=== PATIENT | female | born 1975 ===

== ENCOUNTER 2017-05-24 15:13 | Inpatient (IN) | payer OTHER ==
[2017-05-24 15:23] VITALS: BMI 29.9
[2017-05-24] MEDS ORDERED: Morphine 2 mg/ml ISec IM STA (15:27)
--- NOTE | 2017-05-24 15:31 | ED PDOC ---
Arrival/HPI - General Time Seen by Provider: 05/24/17 15:19 Historian: Patient - History of Present Illness Narrative History of Present Illness (Text): 05/24/17 15:28 41yo female with no PMHx who present with complaint of b/l ankle pain s/p trauma minutes [employer]. Patient states she slipped and fell down 3stairs, injuring her ankles. Notes that pain is worse on her left ankle. She did not take any medication for the pain. Denies hitting her head. Denies LOC, any other complaint. Past Medical History - Provider Review Nursing Documentation Reviewed: Yes Family/Social History - Physician Review Nursing Documentation Reviewed: Yes Family/Social History: Unknown Family HX Allergies/Home Meds Allergies/Adverse Reactions: Allergies No Known Allergies Allergy (Verified 05/24/17 15:23) Home Medications: Home Meds Medication Instructions Recorded Confirmed Norethindrone [Mabel] 0.35 mg PO DAILY 05/24/17 05/24/17 Review of Systems - Physician Review All systems were reviewed & negative as marked: Yes - Review of Systems Constitutional: Normal Eyes: Normal ENT: Normal Respiratory: Normal Cardiovascular: Normal Gastrointestinal: Normal Genitourinary Female: Normal Musculoskeletal: Arthralgias (B/L ankle) Skin: Normal Neurological: Normal Endocrine: Normal Hemo/Lymphatic: Normal Psychiatric: Normal Physical Exam Vital Signs Reviewed: Yes Vital Signs Temp Pulse Resp BP Pulse Ox 05/24/17 19:42 52 L 18 134/68 98 05/24/17 17:32 59 L 18 110/67 99 05/24/17 15:22 97.4 F L 56 L 18 108/62 99 Temperature: Afebrile Blood Pressure: Normal Pulse: Regular Respiratory Rate: Normal Appearance: Positive for: Well-Appearing, Non-Toxic, Comfortable Pain Distress: None Mental Status: Positive for: Alert and Oriented X 3 - Systems Exam Head: Present: Atraumatic, Normocephalic Pupils: Present: PERRL Extroacular Muscles: Present: EOMI Conjunctiva: Present: Normal Mouth: Present: Moist Mucous Membranes Neck: Present: Normal Range of Motion Respiratory/Chest: Present: Clear to Auscultation, Good Air Exchange. No: Respiratory Distress, Accessory Muscle Use Cardiovascular: Present: Regular Rate and Rhythm, Normal S1, S2. No: Murmurs Abdomen: Present: Normal Bowel Sounds. No: Tenderness, Distention, Peritoneal Signs Back: Present: Normal Inspection Upper Extremity: Present: Normal Inspection. No: Cyanosis, Edema Lower Extremity: Present: NORMAL PULSES, Tenderness (B/L ankle worse on the left ), Swelling (Left ankle diffusely), Neurovascularly Intact. No: Edema, Normal ROM (Limited on ROM of left ankle) Neurological: Present: GCS=15, CN II-XII Intact, Speech Normal Skin: Present: Warm, Dry, Normal Color. No: Rashes Psychiatric: Present: Alert, Oriented x 3, Normal Insight, Normal Concentration Medical Decision Making ED Course and Treatment: 05/25/17 00:46 PT in ED for stated history. she was seen as soon as she came to ED and her pain was controlled in ED with analgesic. B/L Ankle xray IMPRESSION: Acute oblique displaced fracture in the distal diaphysis of the left fibula with 5 mm lateral displacement. Acute transverse nondisplaced fracture in the mid left medial malleolus. Result was JW Reaves. He notes that he saw the images himself and recommends admission of pt for surgical fixation of fracture. Result and plan was DW the pt and she agreed Pre op lab was ordered and was WNL. EKG Sinus johan @49bpm 05/25/17 00:50 Case was JW Nayak and she accepted pt to her service - RAD Interpretation Radiology Orders: 05/24/17 15:27 ANKLE COMPLETE 3 VIEWS BI [RAD] Stat 05/24/17 18:06 CHEST PORTABLE [RAD] Stat - Medication Orders Current Medication Orders: Famotidine (Pepcid) 40 mg PO HS CARLOS Last Admin: 05/24/17 22:11 Dose: 40 mg Hydromorphone HCl (Dilaudid) 0.5 mg IVP Q4H PRN PRN Reason: Pain, Mild (1-3) Last Admin: 05/24/17 23:04 Dose: 0.5 mg JEFFERY Pain Assessment Document 05/24/17 23:04 BN (Rec: 05/24/17 23:04 [id number]) Pain Reassessment Is this a pain reassessment? No Presence of Pain Presence of Pain Yes Pain Scale Used Pain Scale Used Numeric Location Left, Right or Bilateral Left Pain Location Body Site Ankle Description Description Constant Intensity of Pain at present 8 Pain Behavior Restlessness Alleviating Factors/Management Medication Techniques Alleviating Factors Medication IVP Administration Document 05/24/17 23:04 BN (Rec: 05/24/17 23:04 BN [id number]) Charges for Administration # of IVP Administrations 1 Ondansetron HCl (Zofran Inj) 4 mg IVP Q6 PRN PRN Reason: Nausea/Vomiting Discontinued Medications Morphine Sulfate (Morphine) 2 mg IM STAT STA Stop: 05/24/17 15:28 Last Admin: 05/24/17 15:27 Dose: 2 mg MAR Pain Assessment Document 05/24/17 15:27 HI (Rec: 05/24/17 15:48 HI [id number]) Pain Reassessment Is this a pain reassessment? No Sleep Is patient sleeping during reassessment? No Presence of Pain Presence of Pain Yes Pain Scale Used Pain Scale Used Numeric Location Left, Right or Bilateral Left Pain Location Body Site Ankle Description Description Throbbing Intensity of Pain at present 10 Acceptable Level of Pain 2 Pain Behavior Moaning Facial Grimacing IM Administration Charges Document 05/24/17 15:27 HI (Rec: 05/24/17 15:48 HI [id number]) Injection Site MAR Injection Site Right Arm Charges for Administration # of IM Administrations 1 Re-Assess: MAR Pain Assessment Document 05/24/17 16:27 HI (Rec: 05/24/17 18:33 HI [id number]) Pain Reassessment Is this a pain reassessment? Yes Sleep Is patient sleeping during reassessment? No Presence of Pain Presence of Pain Yes Pain Scale Used Pain Scale Used Numeric Location Left, Right or Bilateral Left Pain Location Body Site Ankle Description Description Constant Intensity of Pain at present 6 Morphine Sulfate (Morphine) 2 mg IVP STAT STA Stop: 05/24/17 18:22 Last Admin: 05/24/17 18:33 Dose: 2 mg MAR Pain Assessment Document 05/24/17 18:33 HI (Rec: 05/24/17 18:34 HI [id number]) Pain Reassessment Is this a pain reassessment? Yes Sleep Is patient sleeping during reassessment? No Presence of Pain Presence of Pain Yes Pain Scale Used Pain Scale Used Numeric Location Left, Right or Bilateral Left Pain Location Body Site Ankle Description Description Constant Intensity of Pain at present 9 Pain Behavior Facial Grimacing IVP Administration Document 05/24/17 18:33 HI (Rec: 05/24/17 18:34 HI [id number]) Charges for Administration # of IVP Administrations 1 Oxycodone/Acetaminophen (Percocet 5/325 Mg Tab) 1 tab PO STAT STA Stop: 05/24/17 16:19 Last Admin: 05/24/17 16:29 Dose: 1 tab MAR Pain Assessment Document 05/24/17 16:29 HI (Rec: 05/24/17 16:29 HI [id number]) Pain Reassessment Is this a pain reassessment? Yes Sleep Is patient sleeping during reassessment? No Presence of Pain Presence of Pain Yes Location Left, Right or Bilateral Left Pain Location Body Site Ankle Re-Assess: [facility] Pain Assessment Document 05/24/17 17:29 HI (Rec: 05/24/17 18:32 HI [id number]) Pain Reassessment Is this a pain reassessment? Yes Sleep Is patient sleeping during reassessment? No Presence of Pain Presence of Pain Yes Pain Scale Used Pain Scale Used Numeric Location Left, Right or Bilateral Left Pain Location Body Site Ankle Description Description Constant Intensity of Pain at present 6 Pneumococcal Polyvalent Vaccine (Pneumovax 23 Vaccine) 0.5 ml IM .ONCE ONE Stop: 05/24/17 22:32 Disposition/Present on Arrival - Present on Arrival Any Indicators Present on Arrival: No History of DVT/PE: No History of Uncontrolled Diabetes: No Urinary Catheter: No History of Decub. Ulcer: No History Surgical Site Infection Following: None - Disposition Have Diagnosis and Disposition been Completed?: Yes Diagnosis: Ankle fracture, bimalleolar, closed Disposition: HOSPITALIZED Disposition Time: 17:00 Patient Plan: Admission Condition: FAIR
--- NOTE | 2017-05-24 16:07 | RAD ---
PROCEDURE: Bilateral Ankle Radiographs. HISTORY: ankle pain s/p trauma COMPARISON: None FINDINGS: BONES: Right ankle: No acute fracture or bone destruction. Bone alignment is normal. Left ankle: There is an acute oblique displaced fracture in the distal diaphysis of the fibula with 5 mm lateral displacement without significant angulation. There is an acute transverse nondisplaced fracture in the medial malleolus. JOINTS: The joint spaces are preserved. SOFT TISSUES: Right Ankle: Normal. Left Ankle: There is moderate periarticular soft tissue swelling. OTHER FINDINGS: None. IMPRESSION: Acute oblique displaced fracture in the distal diaphysis of the left fibula with 5 mm lateral displacement. Acute transverse nondisplaced fracture in the mid left medial malleolus.
[2017-05-24] MEDS ORDERED: Oxycodone/Acetaminophen 5/325 mg Tab PO STA (16:18)
[2017-05-24] MEDS ORDERED: Morphine 2 mg/ml ISec IVP STA (18:21)
[2017-05-24 18:55] LABS: BASO # 0.02 K/mm3 (0.0-2.0); BASO % 0.2 % (0.0-3.0); EOS # 0.1 (0.0-0.7); EOS % 0.6 % (1.5-5.0); GRAN # 7.59 (1.4-6.5); GRAN % 76.3 % (50.0-68.0); HEMOGLOBIN 13.7 g/dL (12.0-16.0); LYMPH # 1.8 (1.2-3.4); LYMPH % 18.3 % (22.0-35.0); MEAN CELL VOLUME 89.1 fl (80.0-105.0); MEAN CORPUSCULAR HGB CONC 33.7 g/dl (31.0-37.0); MEAN PLATELET VOLUME 11.7 fl (7.0-11.0); MONO # 0.5 (0.1-0.6); MONO % 4.6 % (1.0-6.0); RBC 4.57 10^6/uL (3.5-6.1); RED CELL DISTRIBUTION WIDTH 14.2 % (11.5-14.5)
[2017-05-24 19:01] LABS: ALB/GLOB RATIO 1.3 (1.1-1.8); ALBUMIN 4.1 g/dL (3.0-4.8); ALT/SGPT 24 U/L (7-56); AST/SGOT 22 U/L (14-36); BLOOD UREA NITROGEN 19 mg/dL (7-21); CALCIUM 9.5 mg/dL (8.4-10.5); GFR AFRICAN-AMERICAN > 60; GFR NON-AFRICAN AMERICAN > 60; PARTIAL THROMBOPLASTIN TIME 26.9 Seconds (25.1-36.5); PROTHROMBIN TIME 11.5 SECONDS (9.4-12.5)
--- NOTE | 2017-05-24 19:15 | CP.PCM.CON ---
History of Present Illness - History of Present Illness History of Present Illness: Orthopedic Consult Note - Dr. Reaves 41 y/o female seen in ED after consultation for left ankle fracture s/p fall. Pt states she slipped when going down a set of stairs and twisted the ankle sharply. She was immediately unable to bear weight and was brought to the [place] ED via ambulance. Denies numbness, tingling or burning. States she can wiggle her toes without difficulty. Admits to pain scaled as an 8 out of 10, mostly on the outside of her left ankle. Denies F/C/N/V/CP/SOB PMHx: denies PSHx: excision of fibroids All: NKDA Social: denies EtOH, cigarette or illicit drug use. Lives with boyfriend and 3 children FamHx: denies Review of Systems - Review of Systems All systems: reviewed and no additional remarkable complaints except (per HPI) Past Patient History - Past Social History Smoking Status: Never Smoked - CARDIAC Hx Cardiac Disorders: No - PULMONARY Hx Respiratory Disorders: No - NEUROLOGICAL Hx Neurological Disorder: No - HEENT Hx HEENT Problems: No - RENAL Hx Chronic Kidney Disease: No - ENDOCRINE/METABOLIC Hx Endocrine Disorders: No - HEMATOLOGICAL/ONCOLOGICAL Hx Blood Disorders: No - INTEGUMENTARY Hx Dermatological Problems: No - MUSCULOSKELETAL/RHEUMATOLOGICAL Hx Musculoskeletal Disorders: No - GASTROINTESTINAL Hx Gastrointestinal Disorders: No - GENITOURINARY/GYNECOLOGICAL Hx Genitourinary Disorders: No - PSYCHIATRIC Hx Psychophysiologic Disorder: No Hx Substance Use: No - SURGICAL HISTORY Hx Surgeries: No Meds Allergies/Adverse Reactions: Allergies Allergy/AdvReac Type Severity Reaction Status Date / Time No Known Allergies Allergy Verified 05/24/17 15:23 Physical Exam - Constitutional Appears: Well, Non-toxic, No Acute Distress - Extremities Exam Additional comments: Left lower extremity focused exam: Vasc: DP/PT pulses palpable 2/4. Temperature gradient warm to warm. CFT < 3 sec to all digits. Localized perimalleolar edema to L ankle Derm: No erythema, no ecchymosis, no fracture blisters, no breaks in skin or soft tissue noted Neuro: Protective sensation grossly intact Ortho: Moderate tenderness to palpation of medial and lateral malleoli. Moderate tenderness elicited upon passive ankle joint ROM assessment. Pt able to perform active dorsiflexion at ankle joint, limited secondary to guarding - Neurological Exam Neurological exam: Alert, Oriented x3 - Psychiatric Exam Psychiatric exam: Normal Affect, Normal Mood Results - Vital Signs Recent Vital Signs: Last Vital Signs Temp 97.4 F L 05/24/17 15:22 Pulse 59 L 05/24/17 17:32 Resp 18 05/24/17 17:32 BP 110/67 05/24/17 17:32 Pulse Ox 99 05/24/17 17:32 - Labs Result Diagrams: 05/24/17 18:30 05/24/17 18:30 Labs: Laboratory Results - last 24 hr 05/24/17 05/24/17 05/24/17 18:30 18:30 18:30 WBC 10.0 RBC 4.57 Hgb 13.7 Hct 40.7 MCV 89.1 MCH 30.0 MCHC 33.7 RDW 14.2 Plt Count 195 MPV 11.7 H Gran % 76.3 H Lymph % (Auto) 18.3 L [place] % (Auto) 4.6 Eos % (Auto) 0.6 L Baso % (Auto) 0.2 Gran # 7.59 H Lymph # (Auto) 1.8 [place] # (Auto) 0.5 Eos # (Auto) 0.1 Baso # (Auto) 0.02 PT 11.5 INR 1.00 APTT 26.9 Sodium 143 Potassium 4.6 Chloride 105 Carbon Dioxide 28 Anion Gap 15 BUN 19 Creatinine 0.9 Est GFR ( Amer) > 60 Est GFR (Non-Af Amer) > 60 Random Glucose 102 Calcium 9.5 Total Bilirubin 0.3 AST 22 ALT 24 Alkaline Phosphatase 86 Total Protein 7.2 Albumin 4.1 Globulin 3.2 Albumin/Globulin Ratio 1.3 BBK History Checked 05/24/17 18:30 WBC RBC Hgb Hct MCV MCH MCHC RDW Plt Count MPV Gran % Lymph % (Auto) [place] % (Auto) Eos % (Auto) Baso % (Auto) Gran # Lymph # (Auto) [place] # (Auto) Eos # (Auto) Baso # (Auto) PT INR APTT Sodium Potassium Chloride Carbon Dioxide Anion Gap BUN Creatinine Est GFR ( Amer) Est GFR (Non-Af Amer) Random Glucose Calcium Total Bilirubin AST ALT Alkaline Phosphatase Total Protein Albumin Globulin Albumin/Globulin Ratio BBK History Checked No verified bt Assessment & Plan - Assessment and Plan (Free Text) Assessment: 41 y/o female with acute oblique displaced fibula diaphyseal fracture and acute transverse nondisplaced fracture of left medial malleolus Plan: Pt seen and evaluated in ED X-rays of L ankle reviewed, reveal displaced left fibular diaphyseal fracture and nondisplaced left transverse medial malleolar fracture Posterior splint applied to LLE Pt to remain NWB to LLE with crutches Please ice and elevate the LLE Plan for OR tomorrow at 4pm Pt to be NPO after breakfast Pre op labs and imaging in chart Will continue to follow patient
[2017-05-24] MEDS ORDERED: Influenza Vaccine 60 mcg/0.5 mL SYR (4YR UP) IM ONE (22:31)
[2017-05-24] MEDS ORDERED: Pneumococcal 23-Valent Vaccine IM ONE (22:31)
[2017-05-24] MEDS: HYDROmorphone 0.5 mg/0.5 ml ISec IVP PRN (23:04)
[2017-05-25] MEDS ORDERED: HYDROmorphone 0.5 mg/0.5 ml ISec IVP STA (01:16)
--- NOTE | 2017-05-25 01:17 | CP.PCM.PN ---
Subjective - Date & Time of Evaluation Date of Evaluation: 05/25/17 Time of Evaluation: 01:16 - Subjective Subjective: left ankle pain dilaudid @ 11PM not due yet(3am) Objective - Vital Signs/Intake and Output Vital Signs (last 24 hours): Temp Pulse Resp BP Pulse Ox 97.4 F L 52 L 18 134/68 98 05/24/17 22:14 05/24/17 22:14 05/24/17 22:14 05/24/17 22:14 05/24/17 19:42 - Medications Medications: Current Medications Famotidine (Pepcid) 40 mg PO HS CARLOS Last Admin: 05/24/17 22:11 Dose: 40 mg Hydromorphone HCl (Dilaudid) 0.5 mg IVP Q4H PRN PRN Reason: Pain, Mild (1-3) Last Admin: 05/24/17 23:04 Dose: 0.5 mg Ondansetron HCl (Zofran Inj) 4 mg IVP Q6 PRN PRN Reason: Nausea/Vomiting - Labs Labs: 05/24/17 18:30 05/24/17 18:30 PT 11.5 SECONDS (9.4-12.5) 05/24/17 18:30 INR 1.00 (0.93-1.08) 05/24/17 18:30 APTT 26.9 Seconds (25.1-36.5) 05/24/17 18:30
[2017-05-25] MEDS ORDERED: Sodium Chloride 0.9% 250 ML IV STA (04:09)
[2017-05-25] MEDS: HYDROmorphone 0.5 mg/0.5 ml ISec IVP PRN ×3 (04:37→12:31)
--- NOTE | 2017-05-25 05:16 | CP.PCM.PN ---
Subjective - Date & Time of Evaluation Date of Evaluation: 05/25/17 Time of Evaluation: 05:12 - Subjective Subjective: Patient was seen because she aske for pain medication. She has an order for dilaudid 0.5 mg IV Q4H PRN. It was given at 11 PM and is not due until 3 AM. 125/78--->108/64.48/min. This 41 year old woman is admitted with left medial malleolus fracture and is for OR at 4-5 PM tomorrow. Objective - Vital Signs/Intake and Output Vital Signs (last 24 hours): Temp Pulse Resp BP Pulse Ox 97.4 F L 52 L 18 134/68 98 05/24/17 22:14 05/24/17 22:14 05/24/17 22:14 05/24/17 22:14 05/24/17 19:42 - Medications Medications: Current Medications Famotidine (Pepcid) 40 mg PO HS CARLOS Last Admin: 05/24/17 22:11 Dose: 40 mg Hydromorphone HCl (Dilaudid) 0.5 mg IVP Q4H PRN PRN Reason: Pain, Mild (1-3) Last Admin: 05/25/17 04:37 Dose: 0.5 mg Ondansetron HCl (Zofran Inj) 4 mg IVP Q6 PRN PRN Reason: Nausea/Vomiting - Labs Labs: 05/24/17 18:30 05/24/17 18:30 PT 11.5 SECONDS (9.4-12.5) 05/24/17 18:30 INR 1.00 (0.93-1.08) 05/24/17 18:30 APTT 26.9 Seconds (25.1-36.5) 05/24/17 18:30 Most Recent Lab Values WBC 10.0 10^3/ul (4.5-11.0) 05/24/17 18:30 RBC 4.57 10^6/uL (3.5-6.1) 05/24/17 18:30 Hgb 13.7 g/dL (12.0-16.0) 05/24/17 18:30 Hct 40.7 % (36.0-48.0) 05/24/17 18:30 MCV 89.1 fl (80.0-105.0) 05/24/17 18:30 MCH 30.0 pg (25.0-35.0) 05/24/17 18:30 MCHC 33.7 g/dl (31.0-37.0) 05/24/17 18:30 RDW 14.2 % (11.5-14.5) 05/24/17 18:30 Plt Count 195 10^3/uL (120.0-450.0) 05/24/17 18: MPV 11.7 fl (7.0-11.0) H 05/24/17 18:30 Gran % 76.3 % (50.0-68.0) H 05/24/17 18:30 Lymph % (Auto) 18.3 % (22.0-35.0) L 05/24/17 18:30 [place] % (Auto) 4.6 % (1.0-6.0) 05/24/17 18:30 Eos % (Auto) 0.6 % (1.5-5.0) L 05/24/17 18:30 Baso % (Auto) 0.2 % (0.0-3.0) 05/24/17 18:30 Gran # 7.59 (1.4-6.5) H 05/24/17 18:30 Lymph # (Auto) 1.8 (1.2-3.4) 05/24/17 18:30 [place] # (Auto) 0.5 (0.1-0.6) 05/24/17 18:30 Eos # (Auto) 0.1 (0.0-0.7) 05/24/17 18:30 Baso # (Auto) 0.02 K/mm3 (0.0-2.0) 05/24/17 18:30 PT 11.5 SECONDS (9.4-12.5) 05/24/17 18:30 INR 1.00 (0.93-1.08) 05/24/17 18:30 APTT 26.9 Seconds (25.1-36.5) 05/24/17 18:30 Sodium 143 mmol/L (132-148) 05/24/17 18:30 Potassium 4.6 mmol/L (3.6-5.0) 05/24/17 18:30 Chloride 105 mmol/L (98-107) 05/24/17 18:30 Carbon Dioxide 28 mmol/L (21-33) 05/24/17 18:30 Anion Gap 15 (10-20) 05/24/17 18:30 BUN 19 mg/dL (7-21) 05/24/17 18:30 Creatinine 0.9 mg/dl (0.7-1.2) 05/24/17 18:30 Est GFR ( Amer) > 60 05/24/17 18:30 Est GFR (Non-Af Amer) > 60 05/24/17 18:30 Random Glucose 102 mg/dL (70-110) 05/24/17 18:30 Calcium 9.5 mg/dL (8.4-10.5) 05/24/17 18:30 Total Bilirubin 0.3 mg/dL (0.2-1.3) 05/24/17 18:30 AST 22 U/L (14-36) 05/24/17 18:30 ALT 24 U/L (7-56) 05/24/17 18:30 Alkaline Phosphatase 86 U/L (38-126) 05/24/17 18:30 Total Protein 7.2 g/dL (5.8-8.3) 05/24/17 18:30 Albumin 4.1 g/dL (3.0-4.8) 05/24/17 18:30 Globulin 3.2 gm/dL 05/24/17 18:30 Albumin/Globulin Ratio 1.3 (1.1-1.8) 05/24/17 18:30 Beta HCG, Quant < 2.39 mIU/mL (0-6.15) 05/24/17 18:30 Blood Type O POSITIVE 05/24/17 18:30 Blood Type Confirm O POSITIVE 05/24/17 19:26 Antibody Screen Negative 05/24/17 18:30 BBK History Checked No verified bt 05/24/17 18:30 - Constitutional Appears: Well, No Acute Distress - Head Exam Head Exam: ATRAUMATIC, NORMAL INSPECTION, NORMOCEPHALIC - Eye Exam Eye Exam: Normal appearance - ENT Exam ENT Exam: Normal External Ear Exam - Neck Exam Neck Exam: Normal Inspection - Respiratory Exam Respiratory Exam: NORMAL BREATHING PATTERN - Cardiovascular Exam Cardiovascular Exam: absent: JVD - GI/Abdominal Exam GI & Abdominal Exam: absent: Distended - Rectal Exam Rectal Exam: Deferred - Exam Additional comments: Deferred. - Extremities Exam Additional comments: Left leg is in splint. She is able to wiggle her toes. - Back Exam Back Exam: NORMAL INSPECTION - Neurological Exam Neurological Exam: Alert, Oriented x3 - Psychiatric Exam Psychiatric exam: Normal Affect, Normal Mood - Skin Skin Exam: Normal Color Assessment and Plan - Assessment and Plan (Free Text) Assessment: Left ankle pain. Left medial malleolus fracture. Plan: Dilaudid 0.5 mg IV x1. Later on nurse calls and tells that blood pressure is 91/54. A bolus of normal saline 250 CC IV was given .BP came up to 100/54.
--- NOTE | 2017-05-25 08:22 | RAD ---
HISTORY: admission COMPARISON: No prior. FINDINGS: LUNGS: No active pulmonary disease. PLEURA: No significant pleural effusion identified, no pneumothorax apparent. CARDIOVASCULAR: Normal. OSSEOUS STRUCTURES: No significant abnormalities. VISUALIZED UPPER ABDOMEN: Normal. OTHER FINDINGS: None. IMPRESSION: No active disease.
[2017-05-25] MEDS ORDERED: Bupivacaine 0.5% Inj(30mL) ONE ×2 (16:32→16:51)
[2017-05-25] MEDS ORDERED: Lidocaine 2% Jelly (Uro-Jet) ONE (16:32)
[2017-05-25] MEDS ORDERED: Rocuronium 10 mg/ml (5 ml) ONE (16:35)
[2017-05-25] MEDS ORDERED: Propofol 10 mg/ml Inj (20 ML) ONE (16:35)
[2017-05-25] MEDS ORDERED: Succinylcholine 200 mg/10 ml Inj IV ONE (16:35)
[2017-05-25] MEDS ORDERED: Midazolam 2 MG/2 ML VIAL ONE (17:10)
--- NOTE | 2017-05-25 18:53 | PCM.ANESB3 ---
Femoral Nerve Block - Femoral Nerve Block Date of Procedure: 05/25/17 Anesthesiologist: Checo Pre-Procedure Diagnosis: Left ankle fracture Post-Procedure Diagnosis: Same Procedure Performed: Femoral Nerve Block Left - Procedure Femoral Nerve Block: The procedure was explained to the patient that it is for the post-operative pain management. Consent was obtained after a thorough discussion with the patient regarding the benefits and possible complications of local anesthetic block of the femoral nerve at the inguinal crease area. The patient was brought to the operating room and standard monitors were applied. Time-out was held with the circulating nurse to confirm the correct surgery and the appropriate block. Under general anesthesia, patient was placed in supine position with fully extended lower extremities and the ___left groin exposed. The femoral artery was then carefully palpated. The ultrasound transducer was then applied to this area in the transverse plane and the femoral nerve was visualized lateral to the femoral artery and underneath the fascia iliaca. After thorough identification, the inguinal crease area was prepped with Chloraprep. At this point, a #22 gauge Stimuplex 2-inch needle was inserted immediately lateral to the femoral artery pulse at the inguinal crease and advanced perpendicularly. The needle was inserted to the ultrasound transducer in-plane towards the femoral nerve in a [id number] direction. Needle advancement was performed carefully under direct ultrasound visualization. Nerve stimulator was used and twitch of the quadriceps muscle was obtained at current of _0.4____ MA. After negative aspiration, ___2__cc of __0.375___% ____bupivicaine was injected and this was followed with __18____ cc of __0.375 % ___ __bupivicaine . Under ultrasound guidance the local anesthetics were observed spreading below fascia iliaca and around the femoral nerve. The needle was removed intact and sterile dressing was applied. The patient had stable vital signs following the block. The patient tolerated the femoral nerve block well and was prepared for subsequent surgery.
--- NOTE | 2017-05-25 18:55 | PCM.ANESB2 ---
Popliteal Nerve Block - Popliteal Nerve Block Date of Procedure: 05/25/17 Anesthesiologist: Checo Pre-Procedure Diagnosis: Left ankle fracture Post-Procedure Diagnosis: Same Procedure Performed: Popliteal Nerve Block Left - Procedure Popliteal Nerve Block: This procedure was explained to the patient that it is for post-operative pain management. Consent was obtained after a thorough discussion with the patient regarding the benefits and possible complications of local anesthetic block of the sciatic nerve at the popliteal level. The patient was brought to the operating room and standard monitors are applied. Time-out was held with the circulating nurse to confirm the correct surgery and the appropriate block. Under general anesthesia, patient's operative leg was gently raised and supported and the groove in between the biceps femoris and vastus lateralis muscles was carefully palpated. The skin approximately 8cm above the popliteal crease was then marked. The ultrasound transducer was then applied to the posterior thigh approximately 8cm above the popliteal crease in the transverse plane and the sciatic nerve before its division was visualized lateral to the popliteal artery and in between the bicep femoris and semimembranosus/ semitendinosus muscles. After identification, the lateral portion of the thigh was prepped with Chloraprep At this point, a # 21 gauge Stimuplex insulated 4 inch needle was inserted into pre-marked area and advanced in a perpendicular direction. The needle was inserted above the ultrasound transducer in-plane towards the sciatic nerve in a [id number] direction. Needle advancement was performed carefully under direct ultrasound visualization. Nerve stimulator was used and dorsiflexion of the __left___ foot was elicited at a current of __0.4___ MA. After repeated negative aspiration, __2___cc of _0.375____ % ___bupivicaine was injected and this was flowed with ___18___ cc of __0.375____% ____bupivicaine___ . Under ultrasound guidance the local anesthetics were observed surrounding sciatic nerve . The needle was removed intact. The patient tolerated the popliteal nerve block well with stable vital signs and was subsequently prepared for the surgery.
[2017-05-25] MEDS ORDERED: Neostigmine Methylsulfate 3mg/3ml Syringe IV ONE (19:02)
[2017-05-25] MEDS ORDERED: HYDROmorphone 0.5 mg/0.5 ml ISec IVP PRN (19:30)
[2017-05-25] MEDS ORDERED: Lactated Ringer's 1,000 ML IV SCH (19:30)
--- NOTE | 2017-05-25 19:32 | PCM.SURG1 ---
Surgeon's Initial Post Op Note - Surgeon's Notes Surgeon: Dr. Reaves [employer] Technical Officer: Dr. Sinha, Dr. Jolley Type of Anesthesia: General Endo, Local Anesthesia Administered By: Dr. Aguero Pre-Operative Diagnosis: Left ankle closed, displaced bimalleolar fracture Operative Findings: 2-0 Vicryl, 3-0 Nylon, Arthrex 8 hole plates and screws Post-Operative Diagnosis: same Operation Performed: Left ankle open reduction and internal fixation Specimen/Specimens Removed: None Estimated Blood Loss: EBL {In ML}: 20 Blood Products Given: N/A Drains Used: No Drains Post-Op Condition: Good Date of Surgery/Procedure: 05/25/17 Time of Surgery/Procedure: 17:33
--- NOTE | 2017-05-25 21:25 | CARD ---
APPROVED REPORT EKG Measurement Heart [id number] <Conclusion> Marked sinus bradycardia with marked sinus arrhythmia Abnormal ECG
--- NOTE | 2017-05-26 04:19 | OP ---
PROCEDURE DATE: 05/25/2017 ATTENDING PHYSICIAN: Tyrell Reaves MD. PLUMBING CONTRACTOR: Adryan Graves PA-C. PREOPERATIVE DIAGNOSES: 1. Left ankle medial malleolar fracture. 2. Left ankle fibula fracture. 3. Syndesmotic disruption. POSTOPERATIVE DIAGNOSES: 1. Left ankle medial malleolar fracture. 2. Left ankle fibula fracture. 3. Syndesmotic disruption. PROCEDURES: 1. Left ankle open reduction and internal fixation of the lateral malleolar fracture. 2. Open reduction and internal fixation of medial malleolar fracture. 3. Open debridement of bone and soft tissue with evacuation of hematoma. 4. Syndesmotic repair of the left ankle using TightRope. 5. Fluoroscopic use, greater than one hour. ANESTHESIA TYPE: General and femoral nerve block. ESTIMATED BLOOD LOSS: 50 mL. SPECIMENS: None. COMPLICATIONS: None. HISTORY: The patient is a 41-year-old female who had a twisting injury of her left ankle. Patient presented to the emergency room, which showed a displaced left ankle bimalleolar fracture with syndesmotic disruption due to displaced nature of the fracture, swelling and inability to bear weight. I had recommended an emergent open reduction and internal fixation of the fracture. I reviewed the risks and benefits of the surgery with the patient in detail. Risks included but not limited to bleeding, infection, neurovascular damage, continued pain, stiffness, symptomatic hardware, need for further surgery, blood clots among others. Patient fully understood the risks and benefits and opted to proceed with the surgery. DESCRIPTION OF PROCEDURE: On the day of the surgery, patient was brought to preop holding area. A laterality sheet was completed confirming the patient's left ankle to be the correct operative site. Left ankle was marked and informed consent was signed, once again reviewing the risks and benefits. Afterwards, the patient was brought to the operating table. She underwent general anesthesia. She was given appropriate prophylactic antibiotics. A well-padded tourniquet was applied to the patient's left thigh. PROCEDURE: The patient's left ankle was draped and prepped in standard sterile manner. Before using an Esmarch, the extremity was exsanguinated and the tourniquet was inflated to 350 mmHg. First, fluoroscopic x-rays were taken, once again showing the displaced bimalleolar fracture with syndesmotic disruption and unstable ankle. First, we proceeded with fixation of the lateral malleoli. A 6 cm incision was made centering over the fracture site. There was extensive hematoma, all the soft tissue and bone was debrided and also irrigated. Next, for fixation, using a reduction clamp, adequate reduction was performed and confirmed on AP and lateral radiograph for fixation. We proceeded with an Arthrex 8-hole one-third tubular plate. The tubular plate was secured and three screws were placed distally and three screws were placed proximally to reduce the fracture and the fracture was fixed adequately. Next, attention was given to medial malleoli. Due to displaced nature, an additional medial incision was made, centering over the medial malleoli. All the soft tissue and bone was debrided. All the fracture hematoma was evacuated. The fracture was reduced and provisionally held with K wires . The positioning of the K-wire was confirmed on AP and lateral radiographs for fixation. Two Arthrex 36-mm partially-threaded cannulated screws were used and the fracture was reduced and fixed. The stability of the fracture was assessed on AP and lateral fluoroscopic images. Next, attention was given to syndesmotic disruption. On stress testing, it was noted that the syndesmosis was unstable. Using a large reduction clamp, the ankles were reduced and for fixation, we used a TightRope device. First, a needle was placed from the fibula medially and a drill hole was made throughout all four cortices and using the TightRope implant, the cortical button was placed on the medial side and it was flipped keeping the syndesmosis under compression reduction. The TightRope device was deployed to reduce the ankle. Afterwards the final radiographs were taken, showing a new anatomic fracture reduction. All the wounds were copiously irrigated. The deep tissues were closed using 2-0 Vicryl and the skin was closed using nylon. Afterwards, patient was then placed in a posterior splint, postoperative instructions included nonweightbearing. There were no complications of surgery. Dr. Wagner Green, is a Board Certified Orthopedic Surgeon who was present for the entirety of the case as his presence was crucial in the patient's positioning, retraction of critical neurovascular structures, fracture reduction, proper implant positioning and successful completion of the surgery. Tyrell Reaves MD [facility] # [id number]
--- NOTE | 2017-05-26 04:41 | CON ---
DATE: 05/25/2017 CHIEF COMPLAINT: Left ankle fracture. HISTORY OF PRESENT ILLNESS: The patient is a 41-year-old female who had a slip and fall with twisting injury. Afterwards, the patient was unable to bear weight, has swelling and ecchymosis of left ankle. The patient presents to [facility] emergency room where the x-rays were taken, showing a displaced bimalleolar fracture of the left ankle and also the widening of syndesmosis that had seen. I had examined the patient at bedside and explained the complex nature of her injury. The patient denies pain in any other extremity or joint. Denies any loss of consciousness. PHYSICAL EXAMINATION: EXTREMITIES: Examination of the patient's left ankle, there is mild swelling and ecchymosis. Tender to palpation of lateral malleoli and medial malleoli. The patient had limited range of motion secondary to the pain. Sensation is grossly intact and neurovascularly intact distally. IMAGING: X-ray of the patient's left ankle showing a bimalleolar left ankle fracture with a widening of syndesmosis. ASSESSMENT: A 41-year-old female with left ankle bimalleolar fracture with syndesmosis disruption. TREATMENT: I had a detailed discussion with the patient reviewing the history, physical exam and x-ray finding. I presented the patient with different treatment options, both operative and nonoperative management. Due to its displaced nature, I have recommended open reduction and internal fixation syndesmotic repair. I reviewed the risks and benefits of the surgery with the patient in detail. The risks included but not limited to bleeding, infection, nerve or vessel damage, continued pain, stiffness, symptomatic hardware and need for further surgery among others. The patient fully understood the risks and benefits and opted to proceed with the surgery. Tyrell Reaves MD
[2017-05-26 07:40] LABS: HEMOGLOBIN 12.1 g/dL (12.0-16.0); MEAN CELL VOLUME 87.7 fl (80.0-105.0); MEAN CORPUSCULAR HEMOGLOBIN 29.2 pg (25.0-35.0); MEAN CORPUSCULAR HGB CONC 33.3 g/dl (31.0-37.0); MEAN PLATELET VOLUME 11.7 fl (7.0-11.0); RBC 4.14 10^6/uL (3.5-6.1); WHITE BLOOD COUNT 7.7 10^3/ul (4.5-11.0)
[2017-05-26 07:50] LABS: IRON 37 ug/dL (45-180)
[2017-05-26 07:53] LABS: BLOOD UREA NITROGEN 10 mg/dL (7-21); CALCIUM 9.4 mg/dL (8.4-10.5); GFR AFRICAN-AMERICAN > 60; GFR NON-AFRICAN AMERICAN > 60; HDL CHOLESTEROL 35 mg/dL (29-60)
[2017-05-26 07:59] LABS: % IRON SATURATION 14 % (20-55); TOTAL IRON BINDING CAPACITY 262 ug/dL (265-497)
[2017-05-26 08:01] LABS: LDL CHOLESTEROL 99 mg/dL (0-129)
--- NOTE | 2017-05-26 08:32 | HP ---
CHIEF COMPLAINT: Fall and ankle pain. HISTORY OF PRESENT ILLNESS: a 41-year-old female with nonsignificant past medical history, has pain in both ankles, status post trauma. According to the patient, she was on the stairs by holding her baby that is couple of weeks old, and she fell down the stairs, injuring her ankles in the effort of trying to save baby, she hit her head, but no loss of consciousness. She has pain in both ankles, worse on her left ankle. No fever. No chills. No nausea, vomiting, or diarrhea, but having intractable pain. PAST MEDICAL HISTORY: Nonsignificant. FAMILY HISTORY: Father and mother, noncontributory. ALLERGIES: THE PATIENT IS NOT ALLERGIC WITH ANY MEDICATIONS. HOME MEDICATIONS: Norethindrone. REVIEW OF SYSTEMS: The patient was seen and examined in her room, having pain in the ankles, has soft cast. No nausea, vomiting, or diarrhea. No hematuria or hematochezia. No headache. No dizziness. No chest pain or palpitations. No fever. No chills. PHYSICAL EXAMINATION: VITAL SIGNS: Temperature 97.5, pulse 56, respiratory rate 18, blood pressure 108/62, pulse oximetry is 99. HEENT: Head is normocephalic and atraumatic. Eyes, PERRLA. Extraocular muscles are intact. Conjunctivae are clear. Nose is patent. Mucous membranes are moist. NECK: Supple. No carotid bruit, JVD, or thyromegaly. CHEST: Bilaterally symmetrical. HEART: S1 and S2 positive. LUNGS: Clear to auscultation. ABDOMEN: Soft. Bowel sounds present. No organomegaly. EXTREMITIES: Tenderness in bilateral ankles, worse on the left. Swelling in left ankle diffusely, having Juan Daniel bandage. Range of motion is limited. NEUROLOGIC: Awake and alert. Obeying simple orders. Oriented x3. LABORATORY DATA: White blood cells 10.0, hemoglobin 13.7, hematocrit 40.7, and platelets 195. Sodium 143, potassium 4.6, BUN 19, creatinine 0.9, and glucose 102. AST 22 and ALT 24. ASSESSMENT AND PLAN: a 41-year-old lady with history of fall, on both ankles, acute oblique displaced fracture in the distal diaphysis of the left fibula with 5 mm lateral displacement, acute transverse nondisplaced fracture in the mid left medial malleolus. Orthopedic consult called. Ice applied. Elevation of the left lower extremities. The patient was kept n.p.o. after breakfast. Went to OR. Surgery done by the orthopedic doctor, Dr. Tyrell Reaves. Giving pain medication, hydromorphone. Pepcid for gastrointestinal prophylaxis. Needs deep venous thrombosis prophylaxis also. Getting Zofran for nauseousness, Tylenol p.r.n., oxycodone prescribed by Dr. Victor Hugo Jolley. We will follow up. Kelsey Nayak MD MTDD
--- NOTE | 2017-05-26 09:17 | RAD ---
PROCEDURE: Left Ankle Radiographs. HISTORY: s/p left ankle ORIF COMPARISON: None FINDINGS: BONES: There is a plate and screws in the distal fibula. There is anatomic alignment. 2 screws are seen in the medial malleolus. The screws do not appear to go through the displaced medial malleolar fracture fragment. JOINTS: Normal. No osteoarthritis. Ankle mortise maintained. Talar dome intact SOFT TISSUES: Normal. OTHER FINDINGS: None. IMPRESSION: As above
[2017-05-26] MEDS: Enoxaparin 40 mg Syringe SC SCH (09:51)
--- NOTE | 2017-05-26 11:37 | CP.PCM.PN ---
Subjective - Date & Time of Evaluation Date of Evaluation: 05/26/17 Time of Evaluation: 11:34 - Subjective Subjective: 41 y/o female seen at bedside 1 day s/p left ankle ORIF. Pt resting comfortably in bedside chair at time of visit in [facility]. Denies having any pain as she had a nerve block last night and it has not worn off. Admits to working with PT this morning and practicing crutch training. States she is having some discomfort in the right ankle as she is putting all of her weight on the right side. Denies any other pedal complaints. Splint has remained intact to left lower extremity. Denies F/C/N/V/CP/SOB; states she had a low grade fever last night but it has since resolved. Objective - Vital Signs/Intake and Output Vital Signs (last 24 hours): Temp Pulse Resp BP Pulse Ox 98.9 F 38 L 20 118/66 96 05/26/17 08:00 05/26/17 08:00 05/26/17 08:00 05/26/17 08:00 05/26/17 08:00 Intake and Output: 05/26/17 05/26/17 06:59 18:59 Intake Total 1140 Output Total 250 Balance 890 - Medications Medications: Current Medications Acetaminophen (Tylenol 325mg Tab) 650 mg PO Q4 PRN PRN Reason: Pain, Mild (1-3) Enoxaparin Sodium (Lovenox) 40 mg SC DAILY [facility] PRN Reason: Protocol Last Admin: 05/26/17 09:51 Dose: 40 mg Famotidine (Pepcid) 40 mg PO [facility] Last Admin: 05/24/17 22:11 Dose: 40 mg Hydromorphone HCl (Dilaudid) 0.5 mg IVP Q4H PRN PRN Reason: Pain, Mild (1-3) Last Admin: 05/25/17 12:31 Dose: 0.5 mg Ondansetron HCl (Zofran Inj) 4 mg IVP Q6 PRN PRN Reason: Nausea/Vomiting Oxycodone/Acetaminophen (Percocet 5/325 Mg Tab) 1 tab PO Q4H PRN PRN Reason: Pain, moderate (4-7) Stop: 05/28/17 19:35 Oxycodone/Acetaminophen (Percocet 5/325 Mg Tab) 2 tab PO Q4H PRN PRN Reason: Pain, severe (8-10) Stop: 05/28/17 19:35 - Labs Labs: 05/26/17 07:00 05/26/17 07:00 PT 11.5 SECONDS (9.4-12.5) 05/24/17 18:30 INR 1.00 (0.93-1.08) 05/24/17 18:30 APTT 26.9 Seconds (25.1-36.5) 05/24/17 18:30 - Constitutional Appears: Well, Non-toxic, No Acute Distress - Extremities Exam Additional comments: Posterior splint clean/dry/intact to LLE Pt able to wiggle toes No strikethrough noted on bandage - Neurological Exam Neurological Exam: Alert, Awake, Oriented x3 - Psychiatric Exam Psychiatric exam: Normal Affect, Normal Mood Assessment and Plan - Assessment and Plan (Free Text) Assessment: 41 y/o female 1 day s/p left ankle ORIF Plan: Pt seen and evaluated at bedside Discussed with attending Dr. Reaves Pt advised to purchase [facility] ankle support brace for R ankle and wear supportive sneaker as she will be compensating on this side during her recovery Pt stable for discharge after completing crutch training for stairs with PT today Pt advised to follow up with Dr. Reaves within 1 week of discharge in his office
[2017-05-26 13:18] LABS: FOLATE 12.1 ng/mL
--- NOTE | 2017-05-26 13:29 | RAD ---
PROCEDURE: Fluoroscopy up to 1 hour HISTORY: O.R.I.F. LEFT ANKLE FX. COMPARISON: TECHNIQUE: Fluoroscopy was provided in the operating room. 46.3 seconds of fluoro time. Three images provided FINDINGS: The study shows internal fixation of a bimalleolar fracture IMPRESSION: As above
[2017-05-26] MEDS: Oxycodone/Acetaminophen 5/325 mg Tab PO PRN ×3 (14:11→23:08)
--- NOTE | 2017-05-27 03:52 | PN ---
DATE: The patient is a 41-year-old female. SUBJECTIVE: The patient is seen and examined at the bedside, sitting on the chair, resting comfortably. Denies any pain status post nerve block. According to the patient ,last night she had a feeling of fever, but now it is gone. Has a feeling of going to have bowel movement, getting training with crutches. Having discomfort in the right ankle also because she is putting all her body weight on the right foot. Left foot is wrapped in the cast. No nausea or vomiting. No hematuria or hematochezia. No headache or dizziness. PHYSICAL EXAMINATION: VITAL SIGNS: Temperature 98.9, pulse 38, respiratory rate 20, and blood pressure 118/66, and pulse oximetry is 96%. HEENT: Head: Normocephalic, atraumatic. Eyes: PERRLA. Extraocular movements are intact. Conjunctivae clear. Nose patent. Mucous membranes are moist. NECK: Supple. No carotid bruits, JVD, or thyromegaly. CHEST: Bilaterally symmetrical. HEART: S1, S2 positive. LUNGS: Clear to auscultation. ABDOMEN: Soft. Bowel sounds are present. No organomegaly. EXTREMITIES: No edema. No cyanosis. NEUROLOGIC: The patient is awake and alert. Obeying simple orders. LABORATORY DATA: White blood cells 7.7, hemoglobin 12.1, hematocrit 36.3, platelets 177. Sodium 141, potassium 3.9, BUN 10, creatinine 0.7, and glucose 108. MEDICATIONS: Tylenol, Lovenox, Pepcid, Dilaudid, Zofran, Percocet. ASSESSMENT AND PLAN: Ms. Jewell Li is a 41-year-old lady, one day status post left ankle open reduction and internal fixation by Dr. Tyrell Reaves. The patient is advised to purchase [id number] ankle support brace for right ankle and wear supportive sneakers as she will be compensating on this side during her recovery as per Orthopedics. The patient is getting training with crutches by Physical Therapy. Gastric and deep venous thrombosis prophylaxis. History of fall. Repeat labs. We will follow up. Kelsey Nayak MD
[2017-05-27] MEDS: Oxycodone/Acetaminophen 5/325 mg Tab PO PRN ×3 (05:42→14:02)
[2017-05-27] MEDS: Enoxaparin 40 mg Syringe SC SCH (09:32)
[2017-05-27 11:17] VITALS: RESP 18
[2017-05-27 16:05] VITALS: BP 97/58; PULSE 55; TEMP 97.7; O2SAT 96
== END 2017-05-27 16:26 | disposition home or self-care (01) | DRG 494 ==
LOC: ED 15:13 → ERH 18:21 → 5RSO 20:25
PROVIDERS: ADMIT Internal Medicine; ATTEND Internal Medicine
PROC: 0QSK04Z Reposition Left Fibula with Internal Fixation Device, Open Approach (ICD-10-PCS; 2017-05-25)
PROC: 0MQR0ZZ Repair Left Ankle Bursa and Ligament, Open Approach (ICD-10-PCS; 2017-05-25)
PROC: 3E0T3BZ Introduction of Anesthetic Agent into Peripheral Nerves and Plexi, Percutaneous Approach (ICD-10-PCS; 2017-05-25)
PROC: 3E0T3BZ Introduction of Anesthetic Agent into Peripheral Nerves and Plexi, Percutaneous Approach (ICD-10-PCS; 2017-05-25)
PROC: 0QSH04Z Reposition Left Tibia with Internal Fixation Device, Open Approach (ICD-10-PCS; principal; 2017-05-25 16:00)
DX: S82.842A Displaced bimalleolar fracture of left lower leg, initial encounter for closed fracture (principal); S93.432A Sprain of tibiofibular ligament of left ankle, initial encounter; W10.9XXA Fall (on) (from) unspecified stairs and steps, initial encounter; Y92.009 Unspecified place in unspecified non-institutional (private) residence as the place of occurrence of the external cause